=== PATIENT | female | born 1980 | race Caucasian/White ===

== ENCOUNTER 2016-12-24 21:00 | Emergency (ER) | payer OTHER ==
[2016-12-24] MEDS ORDERED: Lidocaine 1% 20 ML MDV INJECT ONE (21:05)
[2016-12-24] MEDS ORDERED: Diphtheria,Pertussis(Acell),Tetanus Vaccine 0.5 ML SDV IM ONE (21:05)
[2016-12-24 21:16] VITALS: BP 147/96
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
[2016-12-24] MEDS ORDERED: Bacitracin Oint 1 GM U/D Packet TOP ONE (21:40)
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
== END 2016-12-24 23:08 | disposition home or self-care (01) ==
LOC: JP.ED 21:00
DX: S61.412A Laceration without foreign body of left hand, initial encounter (principal); Z23 Encounter for immunization; Z79.899 Other long term (current) drug therapy; V90.09XA Drowning and submersion due to unspecified watercraft overturning, initial encounter
CPT/HCPCS: 12001; 73130-26-LT; 73130-LT; 90471; 90715; 99284-25